=== PATIENT | female | born 1940 ===

== ENCOUNTER → 2017-08-01 | Day surgery (SDC) | payer BC ==
[2017-07-31 15:44] VITALS: Ht 160 cm; Wt 63.2 kg
[~2017-08-01] VITALS: Ht 160 cm; Wt 63.2 kg
[~2017-08-01] MED LIST: APIX1TAB3 PO; BRIMONIDINE TART 0.2% OP SOLN PER DROP CHARGE OPL ONE; BRIMONIDINE TARTRATE 0.2% 5ML OP SCH; BRIMONIDINE TARTRATE 0.2% 5ML OPL SCH; CLOP1TAB15 PO; COEN100C6 PO; MULT-506 PO; OMEG10002 PO; PATIENT'S ALLERGY INFO NEEDS ENTERED SCH; PILOCARPINE HCL 2% OP SOLN 15 ML BTL ONE; PILOCARPINE HCL 2% OP SOLN 15 ML BTL OPL SCH; PROPARACAINE 0.5% OP SOLN PER DROP CHARGE OPL SCH; PrednisoLONE ACET 1% OP SUSP 5 ML BTL OP SCH; PrednisoLONE ACET 1% OP SUSP 5 ML BTL OPL ONE
[2017-08-01 11:26] VITALS: BP 147/64; PULSE 57; O2SAT 97
--- NOTE | 2017-08-01 11:28 | Discharge Instructions-[facility] ---
Discharge Instructions Date of Service Aug 01, 2017. Visit Reason for Visit: Left Eye Glaucoma Discharge Discharge Diagnosis / Problem: glaucoma Discharge Goals Goal(s): Improve disease control Activity Recommendations Activity Limitations: resume your previous activity Anesthesia . Post Anesthesia Instructions: If you have had General Anesthesia or IV Sedation: * Do not drive today. * Resume driving when surgeon permits. * Do not make important decisions or sign legal documents today. * Call surgeon for: 1. Temperature elevations greater than 101 degrees F. 2. Uncontrollable pain. 3. Excessive bleeding. 4. Persistent nausea and vomiting. 5. Medication intolerance (nausea, vomiting or rash). * For nausea and vomiting use only clear liquids such as: tea, soda, bouillon until nausea subsides, then gradually increase diet as tolerated. * If you have any concerns or questions, call your surgeon's office. If physician is unavailable and it is an emergency, call 911 or go to the nearest emergency room. . Instructions / Follow-Up Instructions / Follow-Up ACTIVITY RECOMMENDATIONS: * No limitations RETURN TO SCHOOL/WORK: * No limitations DIET: * No limitations MEDICATIONS: Resume previous medications unless instructed otherwise by your surgeon. * Please use Prednisolone acetate drops prescription given to you at your office appointment as follows: 1 drop in affected eye 4 times a day for 5 days. * Continue all glaucoma drops as usual with no interruption to either eye. SPECIAL CARE INSTRUCTIONS: Call your doctor at with any concerns or problems. FOLLOW UP VISIT: Follow-up with Dr Morillo in 1 hour. Diet Recommendations Home Diet: resume previous diet Pending Studies Studies pending at discharge: no Medical Emergencies . Who to Call and When: Medical Emergencies: If at any time you feel your situation is an emergency, please call 911 immediately. . Non-Emergent Contact Non-Emergency issues call your: [employer] . . "Provider Documentation" section prepared by Steven Morillo. .
--- NOTE | 2017-08-01 11:29 | [facility] Operative Report ---
Operative Report Date of Service Aug 01, 2017. Operative Report Diagnosis: Glaucoma left eye Procedure: SLT superior 180 degrees, 80 spots 1.2-1.4 mJ Complications: none I attest to the content of the Intraoperative Record and any orders documented therein. Any exceptions are noted below.
== END | disposition home or self-care (01) ==
LOC: X.SURG 09:48
PROVIDERS: ATTEND Ophthalmology
DX: H40.1120 Primary open-angle glaucoma, left eye, stage unspecified (principal); I51.9 Heart disease, unspecified